=== PATIENT | male | born 1955 | race Caucasian/White ===

== ENCOUNTER 2017-01-24 23:56 | Emergency (ER) | payer OTHER ==
[~2017-01-24] VITALS: Ht 175.3 cm; Wt 75.0 kg
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
[2017-01-25 00:13] VITALS: BP 145/72; PULSE 68; RESP 20; TEMP 98.5; O2SAT 99
[2017-01-25 00:36] LABS: AUTOMATED NEUTROPHIL # 3.7 TH/MM3 (1.8-7.7); BASOPHIL % 0.8 % (0.0-2.0); EOSINOPHIL # 0.1 TH/MM3 (0-0.4); HEMATOCRIT 45.8 % (39.0-51.0); HEMO FLAGS DIFF FINAL; LYMPH % 26.2 % (9.0-44.0); LYMPHOCYTE # 1.6 TH/MM3 (1.0-4.8); MEAN CELL VOLUME 87.3 FL (80.0-100.0); MEAN CORPUSCULAR HEMOGLOBIN 29.3 PG (27.0-34.0); MEAN CORPUSCULAR HGB CONC 33.6 % (32.0-36.0); MONO % 11.1 % (0.0-8.0); NEUT % 59.9 % (16.0-70.0); PLATELET COUNT 143 TH/MM3 (150-450); RED BLOOD COUNT 5.24 MIL/MM3 (4.50-5.90); RED CELL DISTRIBUTION WIDTH 13.1 % (11.6-17.2); WHITE BLOOD COUNT 6.1 TH/MM3 (4.0-11.0)
[2017-01-25 01:03] LABS: BICARBONATE 24.2 MEQ/L (21.0-32.0); POTASSIUM 3.8 MEQ/L (3.5-5.1)
[2017-01-25 07:11] VITALS: BP 120/87; PULSE 80; RESP 18; O2SAT 98
--- NOTE | 2017-01-25 11:08 | PD ---
Physical Exam Date Seen by Provider: Jan 25, 2017 Time Seen by Provider: 11:05 Narrative I have discussed the case with Ananya TURK and patient's garner act was lifted. I have discussed with patient and he has no suicide or homicide ideation. He is ready to go home. Data Data Last Documented VS Vital Signs Date Time Temp Pulse Resp B/P (MAP) Pulse Ox O2 Delivery O2 Flow Rate FiO2 01/25/17 07:11 80 18 120/87 (98) 98 Room Air 01/25/17 00:13 98.5 Orders Orders Complete Blood Count With Diff (01/25/17 00:07) Basic Metabolic Panel (Bmp) (01/25/17 00:07) Psych Screen (01/25/17 00:07) Drug Screen, Random Urine (01/25/17 00:07) Alcohol (Ethanol) (01/25/17 00:07) Diet Regular Basic (01/25/17 Breakfast) Labs Laboratory Tests Test 01/25/17 00:15 White Blood Count 6.1 TH/MM3 Red Blood Count 5.24 MIL/MM3 Hemoglobin 15.4 GM/DL Hematocrit 45.8 % Mean Corpuscular Volume 87.3 FL Mean Corpuscular Hemoglobin 29.3 PG Mean Corpuscular Hemoglobin Concent 33.6 % Red Cell Distribution Width 13.1 % Platelet Count 143 TH/MM3 Mean Platelet Volume 8.5 FL Neutrophils (%) (Auto) 59.9 % Lymphocytes (%) (Auto) 26.2 % Monocytes (%) (Auto) 11.1 % Eosinophils (%) (Auto) 2.0 % Basophils (%) (Auto) 0.8 % Neutrophils # (Auto) 3.7 TH/MM3 Lymphocytes # (Auto) 1.6 TH/MM3 Monocytes # (Auto) 0.7 TH/MM3 Eosinophils # (Auto) 0.1 TH/MM3 Basophils # (Auto) 0.0 TH/MM3 CBC Comment DIFF FINAL Differential Comment Blood Urea Nitrogen 11 MG/DL Creatinine 0.83 MG/DL Random Glucose 111 MG/DL Calcium Level 9.2 MG/DL Sodium Level 139 MEQ/L Potassium Level 3.8 MEQ/L Chloride Level 106 MEQ/L Carbon Dioxide Level 24.2 MEQ/L Anion Gap 9 MEQ/L Estimat Glomerular Filtration Rate 94 ML/MIN Urine Opiates Screen NEG Urine Barbiturates Screen NEG Urine Amphetamines Screen NEG Urine Benzodiazepines Screen NEG Urine Cocaine Screen NEG Urine Cannabinoids Screen NEG Ethyl Alcohol Level 35 MG/DL MDM Medical Record Reviewed: Yes Supervised Visit with GAIL: No Differential Diagnosis depression, drug induced mood disorder Narrative Course Patient cleared for discharge. Diagnosis Primary Impression: Major depression Qualified Codes: F33.1 - Major depressive disorder, recurrent, moderate Patient Instructions: General Instructions Disposition: 01 DISCHARGE HOME Condition: Stable Priscilla Olguin Jan 25, 2017 11:08
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
== END 2017-01-25 11:25 | disposition home or self-care (01) ==
LOC: NEPD 23:56
DX: F33.1 Major depressive disorder, recurrent, moderate (principal); F43.21 Adjustment disorder with depressed mood; Z86.59 Personal history of other mental and behavioral disorders
CPT/HCPCS: 80048; 80307; 85025; 99283